=== PATIENT | female | born 1975 | race Two or more races ===

== ENCOUNTER 2024-09-28 05:46 | Day surgery (SDC) | payer OTHER, SELFPAY ==
[2024-09-21 11:39] LABS: Hematocrit 38.9 % (37.0-47.0); Mean Corp Hgb Conc. 33.4 g/dL (33.0-37.0); Mean Corpuscular Hgb 30.9 pg (27.0-31.0); Mean Corpuscular Volume 92.4 fL (81.0-99.0); Mean Platelet Volume 9.8 fL (7.4-10.4); Platelet Count 246 10^3/uL (130-400); Red Blood Cell Count 4.21 10^6/uL (4.20-5.40); Red Cell Dist. Width 12.6 % (11.5-14.5); White Blood Cell Count 6.7 10^3/uL (4.8-10.8)
[2024-09-21 11:57] LABS: Blood Urea Nitrogen 8 mg/dl (7-17); Calcium 9.5 mg/dl (8.4-10.2); Carbon Dioxide 23 mmol/L (22-30); Chloride 109 mmol/L (98-107); Glucose 93 mg/dl (70-99); Potassium 4.6 mmol/L (3.5-5.1); Sodium 141 mmol/L (135-145); eGFR > 60.00
--- NOTE | 2024-09-22 13:13 | PTCARENOTE ---
Abnormal ECG 09/22/[address] Calvo, no further intervention requested.
[2024-09-23 13:17] VITALS: BMI 28.1
[2024-09-28] VITALS (10 sets, daily range): BP systolic 115–141; BP diastolic 75–92; BMI 28.1
[2024-09-28] MEDS: Pyridium 200 MG PO (06:52)
[2024-09-28] MEDS: HEPARIN 5000 UNITS SC (06:52)
[2024-09-28] MEDS: NORMOSOL-R/PLASMALYTE-A 1000 IV (06:53)
== END 2024-09-28 13:25 | disposition home or self-care (01) ==
LOC: SDS 05:46
PROVIDERS: ATTENDING PHYSICIAN Obstetrics & Gynecology; PRIMARYCARE PHYSICIAN Family Medicine
DX: N81.2 Incomplete uterovaginal prolapse (principal); N39.3 Stress incontinence (female) (male); N80.03 Adenomyosis of the uterus; D25.9 Leiomyoma of uterus, unspecified; N88.8 Other specified noninflammatory disorders of cervix uteri
CPT/HCPCS: 57425; 58571; 57250; 57288; 88305; 36415; 80048; 85027; 86850; 86900; 86901; 93005; C1713; C1763; C1771